=== PATIENT | male | born 1945 | race Caucasian/White ===

== ENCOUNTER 2019-05-28 11:10 | Inpatient (IN) | payer OTHER ==
[~2019-05-28] VITALS: Ht 175.3 cm; Wt 116.6 kg
--- NOTE | 2019-05-28 11:50 | NUR ---
PT WAS LYING ON BED, CO CHEST UNCOMFROTABLE. PT WAS A/OX3. BREATHING EVEN.
--- NOTE | 2019-05-28 11:50 | NUR ---
CHEST XRAY WAS BEDSIDE.
[2019-05-28 11:58] LABS: CALCIUM 8.8 mg/dL (8.5-10.1); CHLORIDE SERUM 108 mmol/L (98-107); CREATININE SERUM 1.4 mg/dL (0.7-1.3); GLUCOSE SERUM 103 mg/dL (74-106); POTASSIUM SERUM 3.7 mmol/L (3.5-5.1); SODIUM SERUM 146 mmol/L (136-145)
[2019-05-28 12:01] LABS: BASOPHIL % 0.3 % (0-2); PLATELET COUNT 228 x10^3mcL (130-400)
[2019-05-28 12:02] LABS: ALBUMIN 3.5 g/dL (3.4-5.0); ALKALINE PHOSPHATASE 78 U/L (46-116); ALT/SGPT 23 U/L (16-63); AST/SGOT 16 U/L (15-37); BILIRUBIN TOTAL 0.3 mg/dL (0.20-1.00); TOTAL PROTEIN, SERUM 7.6 g/dL (6.4-8.2)
[2019-05-28 12:09] LABS: RED CELL DISTRIBUTION WIDTH 15.4 % (11.5-14.5)
[2019-05-28 15:13] LABS: T3 TOTAL 0.89 ng/mL
[2019-05-28] MEDS ORDERED: HYDROCHLOROTHIA25 MG PO (15:17)
[2019-05-28] MEDS ORDERED: ATENOLOL25 MG PO (15:19)
[2019-05-28] MEDS ORDERED: NOR10 PO (15:19)
[2019-05-28] MEDS ORDERED: SOLIQUA SQ (15:19)
--- NOTE | 2019-05-28 15:20 | NUR ---
REPORT GIVEN TO SHAILESH BASSETT. PT WILL GO 219B. TELE.
[2019-05-28 15:27] LABS: CHOLESTEROL/HDL RATIO 3.3; MAGNESIUM 1.8 mg/dL (1.8-2.4); PHOSPHOROUS 3.3 mg/dL (2.5-4.9)
[2019-05-28] MEDS ORDERED: METFORMIN HYDR500 M1 PO (15:29)
[2019-05-28] MEDS ORDERED: NEU300 PO (15:30)
[2019-05-28] MEDS ORDERED: NORCO1 TA2 PO (15:30)
[2019-05-28] MEDS ORDERED: ESCITALOPRAM10 M1 PO (15:30)
[2019-05-28] MEDS ORDERED: BENAZEPRIL HYDR40 M1 PO (15:31)
[2019-05-28 15:37] LABS: FREE T4 1.03 ng/dL (0.76-1.46); FREE THYROXINE INDEX 3.1 ug/dL (1.4-4.5); T4(THYROXINE) 9.5 ug/dL (4.7-13.3)
--- NOTE | 2019-05-28 15:52 | NUR ---
RECEIVED PT FROM ED [facility]IA [employer], CAME IN DUE TO CHEST PAIN. AAOX4. DENIES HEADACHE/DIZZINESS. ABLE TO FOLLOW COMMANDS. NO SOB NOTED, LUNG SOUNDS CTA. DENIES CHEST PAIN/PRESSURE, SR ON THE MONITOR. DENIES ABDOMINAL DISCOMFORT. ABDOMEN IS SOFT. VOIDS. IV SITE ON THE LEFT HAND GAUGE 22 IS PATENT AND INTACT. SIDE RAILS UPX2. CALL LIGHT ON REACH. CP=697/76. ENDORSED TO PRIMARY NURSE SHAILESH FOR CONTINUITY OF CARE
--- NOTE | 2019-05-28 16:02 | NUR ---
RECEIVED PT FROM [facility], REPORT GIVEN BY DANYELLE LOPEZ. PT ARRIVED BY CHANEL ACCOMPANIED BY RN. PT IS AAOX4, DENIES H/A AND DIZZINESS. TELE MONITOR [address] READING SINUS LARRY, HR 56. PT DENIES C/P, PRESSURE AND PALPITATIONS. RESP EVEN AND UNLABORED. LUNG SOUNDS CTA. ON R/A. NO COUGH OR SOB NOTED. PT USES BIPAP AT NIGHT. ABDOMEN ROUND, NONTENDER, NONDISTENDED. BOWEL SOUNDS ACTIVE X4 QUADS. PT DENIES N/V/D AND CONSTIPATION. SKIN CDI. PERIPHERAL PULSES MODERATELY PALPABLE. NO EDEMA NOTED. IVF RUNNING TO , SITE WNL, NO S/S OF INFECTION OR INFILTRATION NOTED. PT ORIENTED TO ROOM AND CALL LIGHT. PT ADMITTED FOR C/P. PT DENIES PAIN AND DISCOMFORT. CALL LIGHT WITHIN REACH. BED IN LOW POSTION.
[2019-05-28 16:03] VITALS: BP 165/76
[2019-05-28 16:06] VITALS: Ht 175.3 cm; Wt 116.6 kg
[2019-05-28 16:40] VITALS: BP 134/62
--- NOTE | 2019-05-28 17:00 | NUR ---
REASSESSMENT OF B/P, PT B/P HAS REDUCED TO 134/62, HR 54. PT DENIES C/P, PRESSURE, PALPITIONS AT THIS TIME. RESP EVEN AND UNLABORED. NO DISTRESS NOTED. CALL LIGHT WITHIN REACH. SON VISITING AT BEDSIDE.
[2019-05-28 17:04] LABS: microscopic required? NO
[2019-05-28 17:07] LABS: urine erythrocyte NEGATIVE (NEGATIVE)
[2019-05-28 17:17] LABS: AMPHETAMINE QUAL UR NONE DETECTED (See below)
[2019-05-28 17:55] VITALS: BP 134/62
--- NOTE | 2019-05-28 18:17 | NUR ---
PT IS AAOX4. RESP EVEN AND UNLABORED. NO DISTRESS NOTED. DENIES PAIN AND DISCOMFORT. TELE [address] READING SINUS LARRY. PT DENIES C/P AND PRESSURE AT THIS TIME. IVF RUNNING TO , SITE WNL. CALL LIGHT WITHIN REACH. BED IN LOW POSTION. FAMILY VISITING AT BEDSIDE.
[2019-05-28 20:13] VITALS: BP 135/65
--- NOTE | 2019-05-28 20:17 | NUR ---
PATIENT RECEIVED IN BED AWAKE,ALERT AND ORIENTED X4, SPEECH CLEAR. BREATHING EVEN AND UNLABORED BS CLEAR,DENIED SOB, ON ROOM AIR SAT 96%, PATIENT STATED WITH HX;SLEEP APNEA AND USES CPAP AT NOC, MACHINE AT BEDSIDE, WANTED TO HAVE IT SET UP AT 2200, WILL NOTIFY RT. DENIED CHEST PAINS, HR=58BPM, TELE#10 SB, RHYTHM REGULAR. IV SITE NO SIGN OF INFILTRATION, TAPE SECURED. AMBULATORY WITH STEADY GAIT. SAFETY PRECAUTIONS MAINTAINED. WILL CONTINUE TO MONITOR.
--- NOTE | 2019-05-28 21:23 | NUR ---
SCHEDULED MEDS ADMINISTERED ,PATIENT INFORMED ABOUT EACH MEDS ACTIONS AND PURPOSES PRIOR. PATIENT TOOK PILLS WELL.
--- NOTE | 2019-05-28 22:20 | NUR ---
RT PLACED PATIENT OF CPAP OF 10, FIO2 28%.
--- NOTE | 2019-05-28 23:33 | NUR ---
PATIENT RESTIBNG QUIETLY AND COMFORTABLY THIS TIME, NO RESP. DISTRESS, CPAP MAINTAINED AT SAME SETTING AND TOLERATING WELL. NO DISTRESS NOTED. SAFETY MAINTAINED. WILL CONTINUE TO MONITOR.
--- NOTE | 2019-05-29 02:00 | NUR ---
SLEEPING QUIETLY AND COMFORTABLY THIS TIME, CPAP MAINTAINED. WILL CONTINUE TO MONITOR.
[2019-05-29 04:08] LABS: BASOPHIL % 0.6 % (0-2); PLATELET COUNT 191 x10^3mcL (130-400); RED CELL DISTRIBUTION WIDTH 15.6 % (11.5-14.5)
[2019-05-29 04:22] LABS: CARBON DIOXIDE 28.7 mmol/L (21-32); CHLORIDE SERUM 107 mmol/L (98-107); GLUCOSE SERUM 119 mg/dL (74-106); POTASSIUM SERUM 3.6 mmol/L (3.5-5.1); SODIUM SERUM 144 mmol/L (136-145)
[2019-05-29 04:23] LABS: CREATININE SERUM 1.3 mg/dL (0.7-1.3); MAGNESIUM 1.9 mg/dL (1.8-2.4); PHOSPHOROUS 4.1 mg/dL (2.5-4.9)
[2019-05-29 05:55] VITALS: BP 101/49
--- NOTE | 2019-05-29 06:19 | NUR ---
PATIENT HAD A RESTFUL AND QUIET NIGHT, TOLERATED CPAP . DENIED CHEST PAIBNS DURING THE SHIFT. AMBULATORY WITH STEADY GAIT.IV SITE NO SIGN OF INFILTRATION. SAFETY PRECAUTIONS MAINTAINED. WILL CONTINUE TO MONITOR.
--- NOTE | 2019-05-29 07:45 | NUR ---
BEDSIDE REPORT AND INTRODUCTION PERFORMED WITH INCOMING NURSE JUANITO.
--- NOTE | 2019-05-29 07:58 | NUR ---
A+OX4, NO RESPIRATORY DISTRESS NOTED, DENIES CHEST PAIN, TELE 10, PULSES MODERATE AND EQUAL LUDMILA, NO EDEMA NOTED, LUNG SOUNDS CTA, TOLERATING RA, CPAP AT NIGHT, BOWEL SOUNDS ACTIVE, VOIDING FREELY, AMBULATORY WITHOUT ASSIST, STEADY GAIT, BROWN/BLACK DISCOLORATION TO LLE FIELD OPERATIONS MANAGER, IV IN L HAND WITH NS @ 100 ML/HR, SITE WNL.
[2019-05-29 08:42] VITALS: BP 134/65
--- NOTE | 2019-05-29 09:38 | NUR ---
PT RESTING IN BED, DENIES CHEST PAIN, NO RESPRIATORY DISTRESS NOTED, CALL LIGHT WITHIN REACH.
--- NOTE | 2019-05-29 11:48 | NUR ---
PT RESTING IN BED, NO RESPIRATORY DISTRESS NOTED, DENIES CHEST PAIN, AWAITING MEMBERSHIP MANAGER, CALL LIGHT WITHIN REACH.
[2019-05-29 12:20] VITALS: BP 144/75
--- NOTE | 2019-05-29 13:39 | NUR ---
PT RESTING IN BED, NO RESPIRATORY DISTRESS NOTED, DENIES CHEST PAIN, AT BEDSIDE, CALL LIGHT WITHIN REACH.
--- NOTE | 2019-05-29 15:31 | NUR ---
PT RESTING IN BED, NO RESPIRATORY DISTRESS NOTED, DENIES CHEST PAIN, AWAITING DR CALZADA, FAMILY AT BEDSIDE, CALL LIGHT WITHIN REACH.
[2019-05-29 16:29] VITALS: BP 146/72
--- NOTE | 2019-05-29 17:02 | NUR ---
PER DR CALZADA PT CLEAR TO DC TODAY AND RECOMMENDS STRESS TEST OUTPATIENT. PER [facility] FOR PT TO EAT CCHO DIET.
--- NOTE | 2019-05-29 17:26 | NUR ---
DR BRODY NOTIFIED THAT DR CALZADA CLEARED PT FOR DC.
[2019-05-29] MEDS ORDERED: LIPI10 PO (17:48)
[2019-05-29] MEDS ORDERED: ECO81 PO (17:49)
[2019-05-29 17:50] VITALS: BP 145/70
--- NOTE | 2019-05-29 18:35 | NUR ---
PT GIVEN DC INSTRUCTIONS AND VERBALIZED UNDERSTANDING, PT GIVEN PRESCRIPTION. IV REMOVED FROM L HAND WITH CATHETER INTACT, NO ERYTHEME OR SWELLING TO SITE. PT OFF UNIT AMBULATING INDEPENDENTLY WITH ALL BELONGINGS ESCORTED BY SILK BLOCKER.
== END 2019-05-29 18:25 | disposition home or self-care (01) | DRG 205 ==
LOC: ED 11:10 → DU 14:05
PROVIDERS: Student in an Organized Health Care Education/Training Program; ADMIT Internal Medicine
DX: M94.0 Chondrocostal junction syndrome [Tietze] (principal); N17.0 Acute kidney failure with tubular necrosis; E87.0 Hyperosmolality and hypernatremia; E44.1 Mild protein-calorie malnutrition; E86.0 Dehydration; E11.42 Type 2 diabetes mellitus with diabetic polyneuropathy; F41.9 Anxiety disorder, unspecified; G47.30 Sleep apnea, unspecified; I10 Essential (primary) hypertension; F32.9 Major depressive disorder, single episode, unspecified; M17.0 Bilateral primary osteoarthritis of knee; E66.9 Obesity, unspecified; Z68.38 Body mass index [BMI] 38.0-38.9, adult; Z87.891 Personal history of nicotine dependence; Z79.84 Long term (current) use of oral hypoglycemic drugs
CPT/HCPCS: 82962; 83880; 84439; C9113; G0378; J7030; Q0092